=== PATIENT | female | born 1945 | race Caucasian/White ===

== ENCOUNTER 2020-01-29 20:01 | Inpatient (IN) | payer OTHER ==
[~2020-01-29] VITALS: Ht 152.4 cm; Wt 53.1 kg
[2020-01-29 20:03] VITALS: BP 127/62
[2020-01-29 20:26] LABS: ABSOLUTE NEUTROPHILS 5.8 thou/uL (1.4-8.2); BASOPHILS 0.9 % (0.0-2.0); EOSINOPHILS 0.9 % (0.0-3.0); HEMATOCRIT 28.3 % (37.0-47.0); HEMOGLOBIN 9.4 gm/dL (12.0-15.0); LYMPHOCYTES 27.7 % (24.0-44.0); MCHC 33.2 g/dL (28.0-37.0); MCV 87.5 fL (80.0-100.0); MONOCYTES 6.3 % (1.0-8.0); PLATELET COUNT 325 thou/uL (150-400); POLYS 64.2 % (36.0-66.0); RBC 3.24 mil/uL (4.20-5.00); RDW 17.4 % (10.5-14.5)
[2020-01-29 20:34] LABS: CALCIUM 8.5 mg/dL (8.5-10.1); CREATININE 1.9 mg/dL (0.6-1.0); POTASSIUM 3.6 mmol/L (3.5-5.1)
[2020-01-29 20:39] LABS: ALBUMIN 2.4 g/dL (3.4-5.0); TOTAL BILIRUBIN 0.3 mg/dL (<0.1-1.0); TOTAL PROTEIN 7.3 g/dL (6.4-8.2)
[2020-01-29 21:50] LABS: URINE BILIRUBIN NEGATIVE (Negative); URINE BLOOD NEGATIVE (Negative); URINE CLARITY CLEAR; URINE COLOR YELLOW; URINE GLUCOSE-RANDOM* NEGATIVE (Negative); URINE KETONES NEGATIVE (Negative); URINE NITRITE-REFLEX NEGATIVE (Negative); URINE PROTEIN (DIPSTICK) NEGATIVE (Negative); URINE SPECIFIC GRAVITY <= 1.005 (1.005-1.035); URINE UROBILINOGEN 0.2 E.U./dl (0.2-1.0)
[2020-01-29 21:52] LABS: URINE LEUKOCYTES-REFLEX 1+ (Negative)
[2020-01-29 21:57] LABS: AMP/METHAMP Negative (Negative); BARBITURATES Negative (Negative); BENZODIAZEPINES Negative (Negative); COCAINE Negative (Negative); METHADONE Negative (Negative); OPIATES Negative (Negative); PCP Negative (Negative)
[2020-01-29 22:01] LABS: BACTERIA-REFLEX 1-9 Few /HPF (None Seen); CASTS None Seen /LPF (None Seen); CRYSTALS None Seen /LPF (None Seen); SQUAMOUS 0-3 Few /LPF (0-3); URINE RBC None Seen /HPF (0-2); URINE WBC-REFLEX 6-15 Few /HPF (0-5)
[2020-01-29 22:17] VITALS: BP 144/43
--- NOTE | 2020-01-29 22:17 | NUR ---
UNABLE TO DO EKG,PT WILL NOT STOP MOVING. PHYSICIAN AWARE
[2020-01-29] MEDS ORDERED: ACETAMINOPHEN325 M1 PO (23:44)
[2020-01-29] MEDS ORDERED: AMIODARONE HCL400 MG PO (23:45)
[2020-01-29] MEDS ORDERED: ASA81BEC PO (23:46)
[2020-01-29] MEDS ORDERED: ATIVAN0.5 M1 PO (23:47)
[2020-01-29] MEDS ORDERED: SYMBICORT80 MCG/4.1 INH ×2 (23:49→23:50)
[2020-01-29] MEDS ORDERED: BUPROPION HCL150 M1 PO (23:52)
[2020-01-29] MEDS ORDERED: BUSPIRONE HCL10 MG PO (23:54)
[2020-01-29] MEDS ORDERED: CARVEDILOL25 MG PO ×2 (23:55→23:59)
[2020-01-29] MEDS ORDERED: KLONOPIN0.5 MG PO (23:59)
[2020-01-30] MEDS ORDERED: COLESTIPOL HCL1 G1 PO (00:01)
[2020-01-30] MEDS ORDERED: DEPAKOTE SPRIN125 MG PO (00:02)
[2020-01-30] MEDS ORDERED: VOLTAREN GEL 1100 G2 TOP (00:04)
[2020-01-30] MEDS ORDERED: COLACE100 MG PO ×2 (00:05)
[2020-01-30] MEDS ORDERED: IRON325 PO (00:06)
[2020-01-30] MEDS ORDERED: LEXAPRO20 MG PO (00:06)
[2020-01-30] MEDS ORDERED: FLUTICASONE-SA1 EAC3 INH (00:09)
[2020-01-30] MEDS ORDERED: LASIX 40 MG TAB40 MG PO (00:10)
[2020-01-30] MEDS ORDERED: HYDRALAZINE 5050 MG PO (00:11)
[2020-01-30] MEDS ORDERED: IPRAT-ALBUT 0.5-3 ML INH (00:14)
[2020-01-30] MEDS ORDERED: ISOSORBIDE MONO30 M1 PO (00:16)
[2020-01-30] MEDS ORDERED: LACTULOSE10 GM/152 PO (00:17)
[2020-01-30] MEDS ORDERED: MILK OF MA400 MG/5 M PO (00:19)
[2020-01-30] MEDS ORDERED: MIRALAX119 GM PO (00:29)
[2020-01-30] MEDS ORDERED: SUPER THERAVIT1 EACH PO (00:30)
[2020-01-30] MEDS ORDERED: NITROSTAT0.4 M1 SUBLING (00:46)
[2020-01-30] MEDS ORDERED: NYSTATIN1 EA10 TOP (00:48)
[2020-01-30] MEDS ORDERED: OMEPRAZOLE 20 M20 M1 PO (00:49)
[2020-01-30] MEDS ORDERED: ZOFRAN4 MG PO (00:50)
[2020-01-30] MEDS ORDERED: ROXICODONE5 MG PO (00:52)
[2020-01-30] MEDS ORDERED: ACETAMINOPHEN325 MG PO (00:55)
--- NOTE | 2020-01-30 03:17 | NUR ---
Pt. admitted through the ED from [facility]. Pt. was accepted by Anmol Andrade NP and admission orders were given. Pt. admitted with diagnosis of Dementia with Behavioral Disturbances. She arrived on the unit at 2225 on 01/29/20. Pt. was transferred from [facility] per W/C van. Per report pt. attempted to grab the steering wheel and open passenger door during transport. Report from [facility] states that she has had a 5 day period of increased aggression, agitation, and combativeness. Her baseline is reported to be Dementia but with no behaviors. She has a psych history of delusional disorder, unspecified psychosis, anxiety disorder, cognitive communication deficit, and major depression. She also has an extensive medical history including COPD, (oxygen sat on admission was 96%), chronic kidney failure, GERD, HTN, a-fib, CHF, and DM -2. She also has a history of dysphagia and it's reported that she is on a pureed diet with nektar thick liquids. She is w/c as a baseline and transferred from cart to bed with 1 person assist. She was also assisted from bed to bathroom with 1 person assist. Her gait is unsteady. Falls band on and Fall Risk care plan initiated. Bed alarm is also activated and name printed in yellow for bedroom signage. She is alert and oriented x 1 knowing her name and only. She can't state time, place, and has no sense of her current situation or future discharge plans. She can remember both her living childrens' names. Daughter Taylor Crouch is DPOA (phone number is [phone] for cell phone and [phone] for work number). She also has a son with name of Pierre and a daughter that she states has been "gone a long time". She further states that her daughter of a heart attack. She became tearful when talking about her daughter that was . Emotional support offered but rejected by patient. She was using profanity and sarcasm while attempting to complete her admission. She refused to answer some questions and would tell me to "get the fu__ out of here"! She repeatedly states that she is not staying here and that she will be leaving in the am.
[2020-01-30] MEDS ORDERED: TRAZODONE 150150 M1 PO (04:16)
[2020-01-30] MEDS ORDERED: SEROQUEL 50 MG50 M1 PO (04:16)
[2020-01-30 04:39] VITALS: BP 144/43
[2020-01-30] MEDS ORDERED: TRELEGY ELLIPT1 EACH INH (04:40)
--- NOTE | 2020-01-30 05:41 | NUR ---
After admission process patient was assited to the bathroom with standby assist x 1 and voided without incident. She laid down in bed at approximately 2330 and was able to fall asleep. She has been asleep with bed alarm on since that time without incident.
[2020-01-30 06:22] LABS: CALCIUM 8.5 mg/dL (8.5-10.1); CREATININE 1.7 mg/dL (0.6-1.0)
[2020-01-30 06:23] LABS: POTASSIUM 2.8 mmol/L (3.5-5.1)
--- NOTE | 2020-01-30 06:31 | NUR ---
Critical lab value of potassium 2.8 called to Anmol Andrade NP. Orders taken.
[2020-01-30 07:41] VITALS: BP 147/54
--- NOTE | 2020-01-30 10:30 | NUR ---
Assumed care 0700. Pt. had many complaints about the food and coffee. She declined to come out for breakfast. She was iformed meals would be hence forward sereved in the dining room. She was refusing to use walker or wheelchair per DIGITAL PRODUCER. Dr. Antonio here-also informed she was refusing to use w/c or walker. This AM was consumed with getting her blood sugar up to 90--Apple and orange juices 4 oz. each given, milk given. Seen by [employer] SALESPERSON-psych and Dr. Antonio. Note EKG dept. called to report they had d/c'd EKG as it did not get done in the ER and if Psych/Medical services wanted EKG-to orderit.
[2020-01-30 11:21] LABS: MAGNESIUM 2.2 mg/dL (1.8-2.4); PHOSPHORUS 4.9 mg/dL (2.5-4.9)
[2020-01-30 11:29] LABS: TSH 2.924 uIU/mL (0.358-3.740)
--- NOTE | 2020-01-30 11:37 | NUR ---
PT REFUSES TO USE WALKER OR RIDE IN WHEEL CHAIR. STATED THAT SHE DOSENT NEED TO USE IT BECAUSE SHE PAYS FOR THIS SHIT. PT IS VERY AGITATED WITH ANY REDIRECTION. YELLOW SOCKS AND SHIRT ARE ON ALONG WITH BED ALARM.
--- NOTE | 2020-01-30 15:33 | NUR ---
YULISA attempted to complete psychosociol with Pt. When entered Pt's room Pt appeared to be sleep. SW called Pt's name and Pt responded. Sw introduced self and asked Pt how she was doing. Pt's stated , " I don't want to walk I feel nauseated, every time I try to sleep somone comes to wake me up", " Now I am mad". SW allowed pt to go back to sleep. YULISA will follow up with Pt at a later time
--- NOTE | 2020-01-30 18:59 | NUR ---
Had shower afterBM.Many repeated questions/complaints--lack ofTV/coffee. Nurse spoke with daughter twice-who thought pt. wasto have Oxycodone scheduled instead of prn q 6 hours. Dtr. wants to know the treatment plan once completed.
[2020-01-30 19:36] VITALS: BP 129/71
--- NOTE | 2020-01-31 05:14 | NUR ---
Assumed care of pt @ 1900. Pt calm et cooperative with pleasant demeanor this shift. Took medications whole without difficulty. Pt was not assessed for ambulation as she was isolated in room in bed most of the shift. Socialized with her roommate. VSWNL. Blood sugar level WNL. Health assessment with no abnormalities noted at present time. Breathing treatment done by RT as scheduled. Denies SI/HI. Currently resting in bed with eyes closed. Will continue to monitor per protocol.
[2020-01-31 07:46] VITALS: BP 143/63
[2020-01-31 08:52] LABS: ABSOLUTE NEUTROPHILS 3.4 thou/uL (1.4-8.2); BASOPHILS 0.4 % (0.0-2.0); EOSINOPHILS 2.3 % (0.0-3.0); HEMOGLOBIN 8.2 gm/dL (12.0-15.0); MCH 28.8 pg (26.0-34.0); MCHC 32.7 g/dL (28.0-37.0); MCV 88.1 fL (80.0-100.0); MONOCYTES 8.8 % (1.0-8.0); POLYS 58.5 % (36.0-66.0); RBC 2.84 mil/uL (4.20-5.00); RDW 17.9 % (10.5-14.5); WBC 5.8 thou/uL (4.0-11.0)
[2020-01-31 08:56] LABS: PLATELET COUNT 232 thou/uL (150-400)
--- NOTE | 2020-01-31 09:00 | NUR ---
Assumed care 0700. Pt. refused to get out of bed for breakfast. Declined to eat breakfast. She had no complaints upon this nurse making initial rounds to see her.
[2020-01-31 09:05] LABS: CALCIUM 8.4 mg/dL (8.5-10.1); CREATININE 1.6 mg/dL (0.6-1.0); MAGNESIUM 2.1 mg/dL (1.8-2.4); PHOSPHORUS 2.5 mg/dL (2.5-4.9); POTASSIUM 3.9 mmol/L (3.5-5.1)
--- NOTE | 2020-01-31 14:11 | NUR ---
Patient was gotten out of her room about 1110. Initially she was very irritable about being pushed in the w/c out of her room after using the toilet and getting her bed remade. She was given coffee, sipped it, and started getting engaged in TV viewing, then settled down about being out of her room. She was asked if she would like to talk with her daughter on the phone and she adamantly declined, stating, no, I don't want to talk with her. She wishes to have a TV in her room and be served all of her meals there. Lab is here to draw blood. Dr. Antonio was consulted regarding recent orders, stating she would talk with Anmol Andrade NP re: orders she had written. Plan is to be on Flagyl, recheck blood work and use good handwashing, unless she needed blood transfusion, then transfer her off the unit.
[2020-01-31 14:40] LABS: HEMATOCRIT 25.4 % (37.0-47.0); HEMOGLOBIN 8.3 gm/dL (12.0-15.0)
[2020-01-31 19:39] VITALS: BP 140/60
[2020-02-01 02:07] LABS: GLYCOHEMOGLOBIN (HGB A1C) 5.6 % (4.8-5.6)
[2020-02-01 04:41] LABS: ABSOLUTE NEUTROPHILS 3.4 thou/uL (1.4-8.2); BASOPHILS 0.6 % (0.0-2.0); EOSINOPHILS 2.6 % (0.0-3.0); HEMATOCRIT 24.4 % (37.0-47.0); HEMOGLOBIN 7.9 gm/dL (12.0-15.0); MCH 28.7 pg (26.0-34.0); MCHC 32.3 g/dL (28.0-37.0); MONOCYTES 7.8 % (1.0-8.0); PLATELET COUNT 206 thou/uL (150-400); RBC 2.74 mil/uL (4.20-5.00); RDW 17.8 % (10.5-14.5); WBC 5.9 thou/uL (4.0-11.0)
[2020-02-01 05:00] LABS: ALBUMIN 1.9 g/dL (3.4-5.0); CALCIUM 8.2 mg/dL (8.5-10.1); CREATININE 1.5 mg/dL (0.6-1.0); MAGNESIUM 2.1 mg/dL (1.8-2.4); PHOSPHORUS 1.4 mg/dL (2.5-4.9); POTASSIUM 4.4 mmol/L (3.5-5.1); TOTAL BILIRUBIN 0.2 mg/dL (<0.1-1.0); TOTAL PROTEIN 6.2 g/dL (6.4-8.2)
--- NOTE | 2020-02-01 05:37 | NUR ---
01-31-20 CARE TRANSFERED 1914 OBSERVED PT IN DAY ROOM SITTING AT TABLE. 2004 PT AAOX1, PRESENTS AGITATED AND IRRITABLE BUT DID COOPERATIVE DURING NURSING ASSESSMENT. PT DENIES ANY PAIN OR SI/SH/HI AT THIS TIME. DURING MEDICATION ADMIN. PT HAD ZERO DIFFICUTIES WITH SWALLOWING MEDICATION WITH LIQUID THICKNER. PT DID HAVE CONCERN ABOUT THE MEN ROAMING HALLWAYS, RN REASSURED PT THAT HER BED ALARM AND MADE SURE ARAIZA WAS EASY ACCESSIBLE. PT DID TEST ARAIZA OUT AND AFTER PROMPTLY RESPONDING, PT REPORTED SHE FELT A LITTL BETTER. OF NOTE, PLEASE REFER TO NURSING INTERVENTIONS FOR MORE INFORMATION. ZERO ACUTE DISTRESS NOTED THROUGHOUT NURSING ROUNDS.
[2020-02-01 07:31] VITALS: BP 114/45
[2020-02-01 08:47] VITALS: BP 114/45
[2020-02-01] MEDS ORDERED: HYDRALAZINE 10M10 MG PO (10:50)
[2020-02-01] MEDS ORDERED: HOME MEDICATION INH (10:53)
--- NOTE | 2020-02-01 11:11 | NUR ---
DR. MEYERS HERE TO SEE THE PT. HER LABS HAVE BEEN DROPPING. DR. CHRISTOPHERS PT. ON MEDICAL. DR. CHRISTENSEN ALSO CONSULTED WITH DR. MEYERS. REPORT GIVEN TO OLIVER MOSER. SHE IS BEING TRANSFERED TO ROOM 436.
--- NOTE | 2020-02-02 21:22 | D ---
[facility] [place] [address] DISCHARGE SUMMARY Name: HAYLEY SANCHEZ Room #: 523B-B DIS IN M.R.#: [id number] Admission: 01/29/20 Attend Phys: Fantasma Moss DO Discharge: 02/01/20 Date of : 47 Report #: [id number] THIS REPORT FOR: cc: Denny Moreira MD, Dennis R MD Kerstein, Andrew H. DO ~ THIS REPORT FOR: //name// CC: Fantasma Moreira DATE OF SERVICE: 02/01/2020 INPATIENT PSYCHIATRIC DISCHARGE SUMMARY ATTENDING PHYSICIAN: Fantasma Moss DO. WEB DESIGN SPECIALIST: Vanesa Antonio M.D. DISCHARGE DIAGNOSES: Major neurocognitive disorder likely due to Alzheimer's disease with behavioral disturbance. She also is being discharged acutely to the medical floor at [facility] for a concern of lower GI bleed with positive fecal hemoccult as well as declining hemoglobin count on the serial hemograms. The patient's co-occurring medical diagnoses are diarrhea, laxative held, decreased p.o. intake, severe malnutrition with albumin 1.9. Possible urinary tract infection, acute kidney injury with CKD stage 3, hypokalemia, insomnia, hypertension, history of coronary artery disease, tobacco use disorder. The patient is discharged to room 436, which is on the medical floor at [facility]. The patient will be n.p.o. for endoscopy tomorrow. Further activity and medication orders per Dr. Antonio. I did put on a discharge med rec to continue. Again, per the hospitalist review, amiodarone 200 mg p.o. daily. Aspirin should be held because of GI bleed. She is on Symbicort 80/4.5 two puffs inhaled daily, bupropion 150 mg p.o. daily, Coreg 25 mg p.o. b.i.d., Klonopin 0.5 mg p.o. b.i.d., colestipol 1 gram p.o. 4 times a day, ferrous sulfate 325 mg p.o. daily, albuterol with Atrovent 3 mL inhaled q. 4 hours p.r.n. shortness of breath. Isosorbide mononitrate 30 mg p.o. daily, oxycodone 5 mg p.o. q. 6 p.r.n. and Seroquel 50 mg p.o. at bedtime. Again, this is probably not optimized as she was admitted this weekend and because she is n.p.o. and most of those medications probably are not going to be [address] [address] DISCHARGE SUMMARY Name: HAYLEY SANCHEZ Room #: 523B-B DIS IN M.R.#: [id number] Admission: 01/29/20 Attend Phys: Fantasma Moss DO Discharge: 02/01/20 Date of : 47 Report #: [id number] appropriate for the medical floor. REASON FOR PSYCHIATRIC ADMISSION: A 74-year-old female brought to the hospital from [facility]. History of dementia, strokes. She has reported becoming aggressive towards them and wanted to be evaluated. HOSPITAL COURSE: The patient was admitted to the Geriatric Psychiatry Unit. The patient was started on Depakote 250 mg twice per day. Seroquel was continued. Unfortunately, she developed weakness, became pale, diarrhea for last 1-2 days. My edger operator Mr. Andrade did her initial psychiatric evaluation Saturday. Dr. Antonio made a decision to move her today to the medical floor. We did have a conference with her daughter, Taylor, over the phone, explaining the poor prognosis given her guarded prognosis. The daughter wanted full measures taken. VITAL SIGNS: On the day of discharge, temperature 36.4, pulse 57, respirations 14, BP 114/45, O2 sat 95%. LABORATORY DATA: On the day of discharge, H and H 8.2 and 25.2, white count 5.7, platelet count 218. Chemistries: Sodium 137, potassium 4.1, chloride 102, bicarbonate 33, anion gap 2, BUN 14, creatinine 1.5, estimated GFR 34, glucose 103. Estimated average glucose 114, calcium 8.1, phosphorus 1.4, magnesium 2.1, total bilirubin 0.2, AST 14, ALT 13, total protein 6.2, albumin 1.9. Vitamin B12, 2261. TSH 2.924. Toxicology showed a Depakote level on 01/31/2020 of 25. Urinalysis showed 3+ leukocyte esterase, 25 leukocytes, 10-30 bacteria, 0-3 light mucus. Her urine culture came back 3 or more organisms, so I think that would be a sign of lack of infectious focus. Occult blood was positive. PHYSICAL EXAMINATION: Nonambulatory. MENTAL STATUS EXAMINATION: This is a well-developed, pale, ill-appearing female appearing stated age. Attention fair. Concentration impaired. She was oriented to day but not to month. Denied SI or HI. Some helplessness, some hopelessness. Denied homicidal intent or plan. Denied suicidal intent or plan. Memory not formally tested. Insight limited. Judgment limited. PROGNOSIS: Guarded. I will be happy to consult on her on the medical floor. Dr. Antonio was informed of this. <ELECTRONICALLY SIGNED> By: Fantasma Moss, 02/02/20 2122 [id number] Fantasma Moss, /nt
== END 2020-02-01 11:16 | disposition home or self-care (01) | DRG 57 ==
LOC: ER 20:01 → EROBS 22:10 → SBH 22:10
PROVIDERS: Emergency Medicine; Internal Medicine; Nurse Practitioner Family; ADMIT Psychiatry & Neurology Psychiatry
DX: G30.9 Alzheimer's disease, unspecified (principal); N39.0 Urinary tract infection, site not specified; N17.9 Acute kidney failure, unspecified; K92.2 Gastrointestinal hemorrhage, unspecified; F01.51 Vascular dementia, unspecified severity, with behavioral disturbance; N18.3 Chronic kidney disease, stage 3 (moderate); E87.6 Hypokalemia; E86.0 Dehydration; D64.9 Anemia, unspecified; G47.00 Insomnia, unspecified; I25.10 Atherosclerotic heart disease of native coronary artery without angina pectoris; F17.200 Nicotine dependence, unspecified, uncomplicated; I12.9 Hypertensive chronic kidney disease with stage 1 through stage 4 chronic kidney disease, or unspecified chronic kidney disease; E11.649 Type 2 diabetes mellitus with hypoglycemia without coma; Z86.73 Personal history of transient ischemic attack (TIA), and cerebral infarction without residual deficits; I25.2 Old myocardial infarction; Z79.82 Long term (current) use of aspirin; Z79.891 Long term (current) use of opiate analgesic; Z91.048 Other nonmedicinal substance allergy status; Z79.899 Other long term (current) drug therapy
CPT/HCPCS: 10880

== ENCOUNTER 2020-02-01 11:30 | Inpatient (IN) | payer OTHER ==
[~2020-02-01] VITALS: Ht 152.4 cm; Wt 53.0 kg
[~2020-02-01 11:30] MED LIST: ACETAMINOPHEN325 M1 PO; ACETAMINOPHEN325 MG PO; AMIODARONE HCL400 MG PO; ASA81BEC PO; ATIVAN0.5 M1 PO; BUPROPION HCL150 M1 PO; BUSPIRONE HCL10 MG PO; CARVEDILOL25 MG PO; COLACE100 MG PO; COLESTIPOL HCL1 G1 PO; DEPAKOTE SPRIN125 MG PO; FLUTICASONE-SA1 EAC3 INH; HOME MEDICATION INH; HYDRALAZINE 10M10 MG PO; HYDRALAZINE 5050 MG PO; IPRAT-ALBUT 0.5-3 ML INH; IRON325 PO; ISOSORBIDE MONO30 M1 PO; KLONOPIN0.5 MG PO; LACTULOSE10 GM/152 PO; LASIX 40 MG TAB40 MG PO; LEXAPRO20 MG PO; MILK OF MA400 MG/5 M PO; MIRALAX119 GM PO; NITROSTAT0.4 M1 SUBLING; NYSTATIN1 EA10 TOP; OMEPRAZOLE 20 M20 M1 PO; ROXICODONE5 MG PO; SEROQUEL 50 MG50 M1 PO; SUPER THERAVIT1 EACH PO; SYMBICORT80 MCG/4.1 INH; TRAZODONE 150150 M1 PO; TRELEGY ELLIPT1 EACH INH; VOLTAREN GEL 1100 G2 TOP; ZOFRAN4 MG PO
[2020-02-01 12:51] VITALS: BP 134/45
[2020-02-01 13:01] LABS: URINE BILIRUBIN NEGATIVE (Negative); URINE BLOOD NEGATIVE (Negative); URINE COLOR YELLOW; URINE GLUCOSE-RANDOM* NEGATIVE (Negative); URINE KETONES TRACE (Negative); URINE LEUKOCYTES 3+ (Negative); URINE NITRITE NEGATIVE (Negative); URINE PROTEIN (DIPSTICK) NEGATIVE (Negative); URINE UROBILINOGEN 0.2 E.U./dl (0.2-1.0)
[2020-02-01 13:04] LABS: URINE CLARITY SL HAZY
[2020-02-01 13:21] LABS: CASTS None Seen /LPF (None Seen); MUCUS 0-3 Light strn/LPF (None Seen); SQUAMOUS 0-3 Few /LPF (0-3)
[2020-02-01 13:22] LABS: CRYSTALS None Seen /LPF (None Seen); URINE RBC None Seen /HPF (0-2); URINE WBC >25 Many /HPF (0-5)
[2020-02-01 13:26] LABS: HEMATOCRIT 25.2 % (37.0-47.0); HEMOGLOBIN 8.2 gm/dL (12.0-15.0); MCH 29.1 pg (26.0-34.0); MCHC 32.5 g/dL (28.0-37.0); MCV 89.5 fL (80.0-100.0); RBC 2.81 mil/uL (4.20-5.00); RDW 17.7 % (10.5-14.5); WBC 5.7 thou/uL (4.0-11.0)
[2020-02-01 13:40] LABS: CALCIUM 8.1 mg/dL (8.5-10.1); CREATININE 1.5 mg/dL (0.6-1.0); POTASSIUM 4.1 mmol/L (3.5-5.1)
[2020-02-01 13:49] LABS: ALBUMIN 1.9 g/dL (3.4-5.0); TOTAL BILIRUBIN 0.2 mg/dL (<0.1-1.0); TOTAL PROTEIN 6.2 g/dL (6.4-8.2)
--- NOTE | 2020-02-01 17:57 | NUR ---
TRANSFERED FROM [facility]. PATIENT IS UNHAPPY ABOUT TRANSFER. EMOTIONAL SUPPORT PROVIDED BUT CONFUSED AND FORGETFUL. AMBULATES WITH SLOW STEADY GAIT. INCONTINT OF DARK LIQUID STOOL. REMAINS NPO. DENIES PAIN. NEEDS REASSURACE, CALLS OUT FREQUENTLY.
[2020-02-01 19:20] VITALS: BP 123/59
[2020-02-02 03:35] VITALS: BP 134/66
[2020-02-02 05:04] LABS: PROTIME 9.8 Seconds (9.3-11.4)
--- NOTE | 2020-02-02 05:51 | NUR ---
RECIEVED CARE OF THIS PATIENT AT 1900. PATIENT ALERT AND ORIENTED TO SELF ONLY. PATIENT VERY BELLIGERENT, CALLING EVERYONE A LIAR, AND OTHER NAMES. VERY INPULSIVE. STATES SHE WILL NOT HAVE TEST THIS MORNING. HAS BEEN NPO FOR TEST [place]CE [place]. PUTS ON LIGHT EVERY FEW MINUTES. WANTS OPPISITE OF WHAT IS DONE, ie: IF LIGHT IS LEFT ON SHE WANTS IT OFF, IF LIGHT TURNED OFF SHE WANTS IT ON. WILL GET INTO BED WHEN ASKED. SLEPT VERY LITTLE THIS AM.
[2020-02-02 06:05] LABS: HEMATOCRIT 25.3 % (37.0-47.0); HEMOGLOBIN 8.5 gm/dL (12.0-15.0); MCH 29.9 pg (26.0-34.0); MCHC 33.8 g/dL (28.0-37.0); MCV 88.4 fL (80.0-100.0); RBC 2.85 mil/uL (4.20-5.00); RDW 17.7 % (10.5-14.5); WBC 7.5 thou/uL (4.0-11.0)
[2020-02-02 07:33] LABS: CALCIUM 8.3 mg/dL (8.5-10.1); CREATININE 1.3 mg/dL (0.6-1.0); MAGNESIUM 1.9 mg/dL (1.8-2.4); PHOSPHORUS 1.3 mg/dL (2.5-4.9)
[2020-02-02 08:22] VITALS: BP 150/68
--- NOTE | 2020-02-02 09:51 | NUR ---
chart review, intro to cm, dcp, and transition of care with daughter arun via phone call. she reported " lives at [facility], started on [facility] but now she need more supervision and assist so since had falls, she went to [facility]. walker, recliner chair, wheel chair. she changes after her last hospital stay. she went to rehab there then back to [facility]. wants to smoke agin and has not smoked in years. she started becoming combative, uses course words at other residents so she went for a [facility] eval for medication re-eval. she increased hard time since cant visit since covid started. she cant not work her recliner chair and cant work her cell phone. she asking for family who have passed always years and years ago. last few months she has been declining mentally and now with some bleed what are they going to do"/daughter arun. passed on information to bedside nurse.
[2020-02-02 15:56] VITALS: BP 138/57
--- NOTE | 2020-02-02 18:28 | NUR ---
PT ASSESSED AT START OF SHIFT. SLEEPING FROM OVERNOC SEROQUEL. PT NPO FOR EGD WHITCH SHE REFUSED TO GO FOR WHEN TRANSPORTER HERE TO TAKE HER. NOTIFIED. DR. CHRISTENSEN HERE TO SEE PT AND TALKED W/ DR. MUJICA RE PLAN OF CARE. PT FAIRLY CALM AND COOPERATIVE UNTIL MID AFTERNOON IN WHICH SHE STARTED YELLING OUT AND TRYING TO GET OUT OF BED W/O CALLING FOR MURSE. DR. CHRISTENSEN NOTIFIED AND SEROQUEL ORDERS CHANGED. PRN DOSE GIVEN AND PT NOW VERY COOPERATIVE AND CALM. SITTING UP IN THE CHAIR AND EATING HER DINNER AND NOT TRYING TO GET DRESSED AND LEAVE. PT DID HAVE 2 MEDIUM BROWN STOOLS W/O ANY SIGNS OF BLEEDING.
[2020-02-02 19:15] VITALS: BP 105/50
--- NOTE | 2020-02-03 03:32 | NUR ---
ASSESSED AT START OF SHIFT PT IN CHAIR GETS UP FREQUENTLY W/O CALLING FALL PREC IN PLACE. A&O2 PT STATED SHE'S GOING HOME TOMORROW. PT TRANSFRED TO BED UP WITH SBA TO THE BATHROOM NO BM THIS SHIFT. NIGHT TIME MEDS GIVEN AND PT FRANK IT WELL. SLEPT THROUGH THE NIGHT. CALL LIGHT IN PLACE AND FREQ ROUNDING DONE WILL CONT WITH POC TILL EOS.
[2020-02-03 04:29] VITALS: BP 147/52
[2020-02-03 05:54] LABS: HEMATOCRIT 22.3 % (37.0-47.0); HEMOGLOBIN 7.3 gm/dL (12.0-15.0); MCH 28.8 pg (26.0-34.0); MCHC 32.5 g/dL (28.0-37.0); MCV 88.5 fL (80.0-100.0); RBC 2.52 mil/uL (4.20-5.00); RDW 17.9 % (10.5-14.5); WBC 5.6 thou/uL (4.0-11.0)
[2020-02-03 11:26] VITALS: BP 134/46
[2020-02-03] MEDS ORDERED: CARVEDILOL12.5 MG PO (11:44)
--- NOTE | 2020-02-03 14:37 | NUR ---
ASSUMED CARE OF THE PT AT 0700. PT IS STANDBY ASSIST WITH WALKER AND GAIT BELT. PT IS ALERT TO SELF AND PLACE, VERY CONFUSED AND FORGETFUL. SPOKE WITH PTS DAUGHTER TODAY ON PTS STATUS, PTS DAUGHTER SPOKE WITH PT AND PT NOW AGREES TO DO EGD, PT WILL BE NPO AFTER MIDNIGHT. NO ACTIVE GI BLEEDS TODAY.R FOREARM DRY AND INTACT. BM TODAY. PTS HGB IS 7.3. PSYCH VISITIED PT TODAY. FALL PRECAUTIONS IN PLACE, BED IN THE LOWEST POSITION AND CALL LIGHT IS WITHIN REACH. WILL CONTINUE TO MONITOR THE PT.
--- NOTE | 2020-02-03 15:02 | NUR ---
CARE TEAM HAD ORIGINALLY INDICATED THAT PT WAS MEDICALLY STABLE TO DC BACK TO [facility] THIS DAY BUT GI ARE WANTING TO DO AN EGD SO DC IS CANCELED. PT'S DTR AND [facility] ARE AWARE. CM TO FOLLOW INDICTED WITH DC PLANNING.
[2020-02-03 15:24] VITALS: BP 133/63
[2020-02-03 20:25] VITALS: BP 135/60
--- NOTE | 2020-02-03 22:11 | HC ---
[facility] [place] [address] CONSULTATION Name: HAYLEY SANCHEZ Room #: 436-P ADM IN M.R.#: [id number] Admission: 02/01/20 Attend Phys: Vanesa Antonio MD Discharge: Date of : 47 Report #: [id number] THIS REPORT FOR: cc: Denny Moreira MD, Dennis R MD Kerstein, Andrew H. DO ~ CC: Denny Antonio DATE OF SERVICE: 02/02/2020 PRIMARY TEAM ATTENDING TODAY: Dr. Fantasma Celestin. CONSULTING PSYCHIATRIST: Fantasma Moss DO REASON FOR CONSULTATION: The patient was in a [facility] until Saturday02/01/2020 and she was transferred to the medical bed for concern of declining in hemoglobin and lower GI bleed. SOURCES OF INFORMATION: Interview with the patient, chart review, discussion with Dr. Celestin. HISTORY OF PRESENT ILLNESS: This is a 74-year-old female with a history of dementia. She was initially admitted on Saturday evening, 01/29/2020 at the [facility] for behavioral disturbance from a nursing facility. The patient was briefly treated on the [facility] when she developed a positive fecal Hemoccult blood as well as declining hemoglobin. Interestingly, today there was supposed to be an upper GI and lower GI study done on EGD and the patient declined to have this done. Her daughter is her DPOA. She is aware of the circumstances. On bedside interview, the patient is not oriented to the day of the week, but she is in fair mood. She reports she wants to endoscopy study done by her own doctor. I explained that the bleeding she encountered could very well be of episodic nature, though may not immediately return. The downside of not being scoped as the cause would not be unearthed and it could become problematic again. I think under the present situation, I agree with the medical team that her hemoglobin has improved on its own at the level of 8.5 and it is not a life threatening emergency. Dr. Celestin would like to keep the patient on the Medical Unit another day to make sure her hemoglobin remained stable. This is also fine with me and reasonable. Additional information from her past history is as follows. PAST PSYCHIATRIC HISTORY: None known other than the dementia. PAST MEDICAL HISTORY: Includes living at [facility]. She has COPD, acute on chronic respiratory failure, systolic congestive heart failure, chronic anemia, CKD stage III, GERD with esophagitis, paroxysmal atrial fibrillation, [facility] [address] [place] [address] CONSULTATION Name: HAYLEY SANCHEZ Room #: 436-P [facility]#: [id number] Admission: 02/01/20 Attend Phys: Vanesa Antonio MD Discharge: Date of : 47 Report #: [id number] several strokes in the past, oropharyngeal dysphagia, chronic pain syndrome, spinal stenosis, diabetes mellitus type 2. ALLERGIES: TAPE. FAMILY HISTORY: One daughter with cancer (1 daughter and 1 son alive). Daughter is only one involved in the care of the patient. Her daughter is her DPOA. REVIEW OF SYSTEMS: Limited because of dementia. MEDICATIONS: Her current medications on the medical unit were as follows: Phos-Nak pack, 1 packet t.i.d., I believe, that is for phosphorus replacement; isosorbide mononitrate 30 mg p.o. daily; hydralazine 10 mg p.o. b.i.d.; lorazepam 0.5 mg p.o. b.i.d.; bupropion 150 mg p.o. daily; amiodarone 200 mg p.o. daily; Coreg 12.5 mg dose p.o. b.i.d.; oxycodone 5 mg q. 6 hours p.r.n. p.o., she has not gotten any down there; pantoprazole 40 mg p.o. b.i.d. IV push. LABORATORY DATA: From today 02/02/2020, H and H 8.5 and 25.3, white count 7.5, platelet count 260.on 02/02/2020, PT 9.8, INR 1.0. Chemistries from the 02/02/2020, sodium 135, potassium 4.0, chloride 102, bicarbonate 31, anion gap 2, BUN 14, creatinine 1.3, which is improved from 1.5 yesterday, estimated GFR 40, glucose 81, calcium 8.3, phosphorus 1.3, magnesium 1.9. AST on 02/01/2020 of 14, ALT 13, total protein 6.2 and albumin 1.9. COVID-19 PCR is negative. No imaging had been done in terms of x-rays. PHYSICAL EXAMINATION: VITAL SIGNS: Today, temperature 36.4, pulse 62, respirations 18, BP 138/57, O2 sat 98%. GENERAL: Sitting upright in bed, ate about 45% of her lunch. Wearing glasses. MENTAL STATUS EXAMINATION: This is a well-developed, unkempt female, appearing slightly older than stated age. Attention fair. Concentration limited. Speech is normal, rate, rhythm, tone. Thought process linear and goal oriented. Thought content focused on improving of situation on one hand, she did have relative poverty of thought though. Denied suicidal or homicidal ideations. Denied auditory, visual, or tactile hallucinations. Memory known to be impaired. Insight limited. Judgment limited. Fund of knowledge below baseline. Mood/Affect- constricted congruent FORMULATION: A 74-year-old female admitted to medical floor due to declining hemoglobin, positive fecal occult blood test, now has refused esophagogastroduodenoscopy or colonoscopy. DIAGNOSES: At this time, major neurocognitive disorder at least cerebrovascular [facility] [address] [place] [address] CONSULTATION Name: HAYLEY SANCHEZ Room #: 436-P [facility] IN M.R.#: [id number] Admission: 02/01/20 Attend Phys: Vanesa Antonio MD Discharge: Date of : 47 Report #: [id number] origin, possibly some Alzheimer's contribution with behavioral disturbance, numerous comorbidities including heart failure, lower GI bleed, COPD, chronic kidney disease. RECOMMENDATIONS: At this time, we will start her on Seroquel 25 mg q. 4 hours p.r.n. for anxiety. We will increase her bedtime Seroquel to 50 mg at bedtime. Some of the other patient's psych meds do not make tremendous sense, for example Klonopin 0.5 mg twice a day. I am inclined to move to 0.25 twice a day and then discontinue it after that, as if she is getting Seroquel for anxiety that is essentially therapeutic duplication. We will leave the bupropion in place at this point. I thought it was twice a day, but looks like it is ordered once a day and that is of some concern as the SR is normally dosed twice a day, but I will leave that be for today as we do want to change too many things at once. Time spent on interview, review of records, coordination of care for this patient is approximately 60 minutes, greater than 50% was spent in coordination of care and counseling with the patient's nurse and the primary team attending, Dr. Fantasma Celestin. <ELECTRONICALLY SIGNED> By: Fantasma Moss DO 02/03/20 [id number] Fantasma Moss DO /nt
--- NOTE | 2020-02-04 02:12 | NUR ---
ASSESSED AT START OF SHIFT PT A&OX2 TO PERSON AND SITUATION. AWARE OF EGD PROCEDURE TOMORROW. PT NPO AT MIDNIGHT. UP WITH SBA TO THE BATHROOM NO ACTIVE GI BLEED THIS SHIFT BUT PT PASSING FLATUS. MUCH CALMER THIS SHIFT ONLY GETS UP TO USE THE BATHROOM. FALL PREC IN PLACE AND CALL LIGHT IN REACH WILL CONT WITH POC TILL EOS.
[2020-02-04 04:30] VITALS: BP 143/41
[2020-02-04 05:51] LABS: HEMATOCRIT 22.5 % (37.0-47.0); HEMOGLOBIN 7.3 gm/dL (12.0-15.0); MCH 29.1 pg (26.0-34.0); MCHC 32.7 g/dL (28.0-37.0); MCV 89.2 fL (80.0-100.0); RBC 2.52 mil/uL (4.20-5.00); RDW 18.3 % (10.5-14.5); WBC 6.1 thou/uL (4.0-11.0)
[2020-02-04 07:45] VITALS: BP 143/73
--- NOTE | 2020-02-04 11:05 | NUR ---
discussed during los per md after egd, discharge [place] b[place] [phone] [place] [facility].
[2020-02-04 16:45] VITALS: BP 135/69
[2020-02-04 19:15] VITALS: BP 107/57
--- NOTE | 2020-02-04 19:37 | NUR ---
EGD COMPLETED. RETURNED TO ROOM AND ATE DINNER. TOLERATED WELL.
--- NOTE | 2020-02-05 02:55 | NUR ---
ASSESSED AT START OF SHIFT PT RESTING IN BED. UP WITH SBA TO THE BSC NO ACTIVE GI BLEED THIS SHIFT. DR CHRISTENSEN CALLED STATED HE WILL SEE PT IN THE AM AND POSSIBLE D/C TO [facility]. EVENING MEDS GIVEN AND PT FRANK IT WELL. GETS UP TO USE THE BATHROOM WITHOUT CALLING. FALL PREC IN PLACE AND CALL LIGHT IN REACH WILL CONT TO MONITOR TILL EOS.
[2020-02-05 03:20] VITALS: BP 137/66
[2020-02-05 04:08] LABS: HEMATOCRIT 21.4 % (37.0-47.0); HEMOGLOBIN 7.1 gm/dL (12.0-15.0); MCH 29.4 pg (26.0-34.0); MCV 89.1 fL (80.0-100.0); RBC 2.4 mil/uL (4.20-5.00); RDW 18.2 % (10.5-14.5); WBC 5.8 thou/uL (4.0-11.0)
[2020-02-05 04:23] LABS: ALBUMIN 1.9 g/dL (3.4-5.0); CALCIUM 7.8 mg/dL (8.5-10.1); CREATININE 1.4 mg/dL (0.6-1.0); MAGNESIUM 1.8 mg/dL (1.8-2.4); PHOSPHORUS 2.7 mg/dL (2.5-4.9); POTASSIUM 3.8 mmol/L (3.5-5.1); TOTAL BILIRUBIN 0.2 mg/dL (0.2-1.0)
[2020-02-05 08:00] VITALS: BP 146/65
[2020-02-05 09:27] LABS: % SATURATION 13 % (20-39); IRON 25 ug/dL (50-170); TIBC 187 ug/dL (250-450)
[2020-02-05 09:43] LABS: FOLIC ACID 9.9 ng/mL (8.6-58.9)
[2020-02-05 15:00] VITALS: BP 146/69
--- NOTE | 2020-02-05 15:39 | NUR ---
ASSUMED CARE OF THE PT AT 0700. PT CONTINUES TO GET OUT OF THE BED AND TRIES TO WALK OUT THE ROOM. PT IS VERY CONFUSED, DOES NOT KNOW WHERE SHE IS OR WHAT DAY IT IS. SPOKE WITH DAUGHTER AND SHE WANTS MOTHER TO GO TO GO UPSTAIRS SO SHE CAN BE MONITORED BY PSYCH, CONTACTED HOSPITALIST. SAT PT AT NURSES STATION UNTIL MEDS BEGAN TO WORK, SEE EMAR. FALL PRECAUTIONS IN PLACE. PT REFUSED TO EAT LUNCH AND REFUSED LUNCH ACCUCHEK. BED IN THE LOWEST POSITION AND BED ALARM ON, CALL LIGHT WITHIN REACH. WILL CONTINUE TO MONITOR THE PT.
--- NOTE | 2020-02-05 15:42 | NUR ---
ON-GOING ASSESSMENT: CM REVIEWED CHART AND SPOKE WITH ATTENDING. PTS HEMOGLOBIN IS LOW AND WILL CONTINUE TO MONITOR IT. PLANS ARE FOR PATIENT TO LIKELY GO BACK TO HER FACILITY [facility] SATURDAY IF HER HEMOGLOBIN REMAINS STABLE. ATTENDING SPOKE WITH PSYCHIATRY AND THEY FEEL PATIENT IS AT BASELINE AND DOES NOT NEED TO RETURN TO [facility]. CM SPOKE WITH LIASON AND PSYCHIATRIST DR. CHRISTENSEN SPOKE WITH THEIR [employer] ATTORNEY [facility] AND THEY CAN ACCEPT HER BACK. CM ASKED IF A LEVEL II needed TO BE COMPLETED DUE TO RECENT PSYCH STAY AND THEY STATED NO JUST TO FAX OVER A [id number] FORM. CM COMPLETED [id number] AND FAXED TO FACILITY. CM CONTACTED ADMISSION LIAFIONA ORTIZ AT [facility] WHO REPORTS THEY CAN ACCEPT PATIENT ONCE MEDICALLY STABLE. IF PATIENT IS STABLE TO DISCHARGE OVER THE WEEKEND CONTACT ANGEL IN ADMISSION ON HER CELL [phone] TO ARRANGE TRANSPORTATION. FOR REPORT CONTACT THE NURSES STATION [phone] AND ASK FOR [facility] [facility]OC[employer]ATE. A CHART COPY WILL NEED TO BE SENT WITH PATIENT. FAX D/C ORDERS AND SUMMARY TO FAX:[phone]. CONTACT PATIENTS DAUGHTER CALEB TO NOTIFY HER AT [phone].
[2020-02-05 19:20] VITALS: BP 110/60
--- NOTE | 2020-02-05 19:40 | NUR ---
1930 assumed care of pt aftyer bedside report, pt refusing to get into bed, pt was found walking in room. Charge nurse yousif notified of fall risk will call house sitter and dispatcher chief [employer] to notify them of pt safety issue
[2020-02-05 22:35] VITALS: BP 139/58
[2020-02-06 06:56] VITALS: BP 126/61
[2020-02-06 08:53] VITALS: BP 146/64
--- NOTE | 2020-02-06 15:48 | NUR ---
ASSUMED CARE OF THE PT AT 0700. PT IS STANDBY ASSIST AND CAN BE IMPULSIVE AND GETS OUT THE BED WITHOUT ASKING. NO INSULIN NEEDED FOR ACCUCHEK. IV DRY AND INTACT. LUNGS ARE CLEAR. PTS HGB IS 7.0, BLOOD TRANSFUSION. SPOKE WITH PTS DAUGHTER ABOUT PTS STATUS. PT REFUSED SCD'S. CALL LIGHT IS WITHIN REACH, BED IN THE LOWEST POSITION/ALARM ON, FALL PRECAUTIONS IN PLACE. PT CAN TURN SELF, HOURLY ROUNDING. WILL CONTINUE TO MONITOR THE PT.
[2020-02-06 16:20] VITALS: BP 110/53; BP 130/52
[2020-02-06 19:20] VITALS: BP 129/48
--- NOTE | 2020-02-06 19:46 | NUR ---
1900 assumed care of pt after bedside report. 1914 BASELINE ASSESSMENT COMPLETED, PT UP TO RESTROOM WITH ASSIST, NO COMPLAINTS OF PAIN AT THIS TIME, COOPERATIVE AND PLEASANT, ORIENTED TO PERSON AND PLACE ONLY, DISORIENTED TO PLACE ALSO QUICKLY. LAST PM SHIFT PT SLEPT 4 HOURS, ALSO MENTIONED THAT AT HOME SHE HAS TAKEN TRAZODONE IN THE PAST FOR SLEEP WHICH WAS HELPFUL FOR HER. PT IS ON SWALLOW PRECAUTIONS, AND FALL PRCAUTIONS IN PLACE, BLOOD TRANSFUSION X 1 UNIT WAS COMPLETED ON PREVIOUS SHIFT, PT TOLERATED WELL, BUT C/O PAIN TO IV SIT WHEN PALPATED, WILL ROTATE IV SITE THIS SHIFT. PT WITH SMALL BM NO ANGELICA BLOOD NOTED, WILL CONTINUE TO MONITOR WITH HOURLY ROUNDING, ARAIZA GIVEN SECONDARY TO CALL LIGHT SYSTEM FAILURE.
[2020-02-06 21:51] LABS: HEMATOCRIT 25.1 % (37.0-47.0); HEMOGLOBIN 8.4 gm/dL (12.0-15.0)
[2020-02-07 06:18] LABS: HEMATOCRIT 28.5 % (37.0-47.0); HEMOGLOBIN 9.3 gm/dL (12.0-15.0); MCH 29.2 pg (26.0-34.0); MCHC 32.7 g/dL (28.0-37.0); MCV 89.3 fL (80.0-100.0); RBC 3.19 mil/uL (4.20-5.00); RDW 18.1 % (10.5-14.5); WBC 6.9 thou/uL (4.0-11.0)
[2020-02-07 06:24] VITALS: BP 157/77
[2020-02-07 15:00] VITALS: BP 162/71
--- NOTE | 2020-02-07 16:56 | NUR ---
PT A&O TO SELF SOMETIMES PLACE. IV INTACT IN L FA. AMBULATES WITH STAND BY ASSIST THOUGH DOES NOT USE CALL LIGHT AND IS IMPULSIVE. BED/ CHAIR ALARM AT ALL TIMES. CALL LIGHT IS W/I REACH.
[2020-02-07 21:24] VITALS: BP 122/57
--- NOTE | 2020-02-08 01:02 | NUR ---
ASSESSMENT COMPLETED. PT IS ALERT TO SELF. DOES NOT KNOW WHERE SHE IS, BUT WOULD AGREE THAT SHE WAS HERE TO R/O A GI BLEED. PT IS LOOKING FOR MOM AND OTHER RELATIVES.PT IS VERY RESTLESS, REFUSES TO SIT DOWN AND WANTS THE FREEEDOM TO WALK INDEPENDENTLY IN ROOM.CHAIR ALARM IN PLACE AND WOULD GO OFF SEVERAL TIMES.PT IS DRINKING OKAY AND TAKES MEDS WITH NO DIFFICULTY. SHIFT PROGRESED, PT OBSERVED TO BE GETTING WORKED UP AND AGITATED. PRN SEROQUEL GIVEN EARLY BUT IS NOT EFFECTIVE. HALDOL IVP GIVEN X1. PT SEEMS TIRED. ASSISTED TO BED.AT THIS TIME, SHE IS STILL AWAKE, SITTING UP IN BED WATCHING TV.REPORT GIVEN TO UNIQUE BOYD, TAKING OVER PATIENT'S CARE.
--- NOTE | 2020-02-08 03:07 | NUR ---
ASSUMED CARE OF PT AT 0100. AMBULATING TO BATHROOM WITH STANDBY ASSIST. DENIES PAIN. RESTING COMFORTABLY. NO NEEDS VOICED. CALL LIGHT WITHIN REACH. FREQUENT OBSERVATION.
[2020-02-08 06:05] LABS: HEMATOCRIT 25.1 % (37.0-47.0); HEMOGLOBIN 8.3 gm/dL (12.0-15.0); MCH 29.6 pg (26.0-34.0); MCV 89.7 fL (80.0-100.0); RBC 2.8 mil/uL (4.20-5.00); RDW 18.1 % (10.5-14.5); WBC 5.1 thou/uL (4.0-11.0)
--- NOTE | 2020-02-08 09:29 | NUR ---
Assess for length of stay. Admit with anemia, diarrhea, uti. Hx dementia, cva, GERD, dysphagia and psych hx. Gastric ulcer identified, possible malignnancy. DNR status. Has been eating 50-90% of meals past 3 days but too drowsy to eat this am from restless evening with medication needed. Has ensure max ordered, but will change to more appropriate glucerna shakes. ST had also assessed on 01/31 and recommend mech altered chopped which no longer on when carb control diet was ordered. Spoke with RN and will add again. Otherwise low nutrition risk with interventions in place.
[2020-02-08] MEDS ORDERED: KLONOPIN0.5 MG PO (11:51)
[2020-02-08] MEDS ORDERED: ROXICODONE5 MG PO (11:51)
[2020-02-08 11:58] VITALS: BP 160/75
--- NOTE | 2020-02-08 12:05 | NUR ---
PT DISCHARGING TODAY BACK TO [facility] FAXED DC ORDERS/SUMMARY TO FACILITY SPOKE WITH ANGEL IN ADM SHE RECEIVED ORDERS. THEY DO NOT TRANSPORTATION I ARRANGED TRANSPORT THROUGH [facility] AT [phone]. NOTIFIED PT'S DTR (CALEB) OF DC AND TIME OF TRANSPORT. UNIT NOTIFIED AND CHART COPY PER US. RN TO CALL REPORT TO [phone].
--- NOTE | 2020-02-08 15:13 | PATH ---
[facility] [address] [place] [address] PATHOLOGY RPT PROCEDURE Name: ABY YIPBA Room #: 446-P ADM IN M.R.#: [id number] Admission: 02/01/20 Date of : 47 Discharge: Report #: [id number] Path Case #: [id number] [facility] Accession Number: [id number] . 01 Material submitted: . stomach - BX OF GASTRIC ULCER . 01 Clinical history: . Anemia; GI bleed . 02 Diagnosis: Gastric biopsy "biopsy of gastric ulcer": - Reactive foveolar hyperplasia suggestive of possible remote ulcer. - No acute ulceration seen. - Mild chronic inflammation seen. - The immunoperoxidase stains for Helicobacter pylori reveal bacteria consistent with Helicobacter pylori. (SHA:pit 02/08/2020) QTP 02/08/2020 1451 Local . 02 Electronically signed: . Zev Anderson MD, Pathologist NPI- [id number] . 01 Gross description: . The specimen is received in formalin, labeled "Gaviota Yip, biopsy of gastric ulcer". Received are two segments of pale barajas soft tissue ranging in size from 0.4 to 0.5 cm in maximum dimensions. The specimen is submitted entirely in cassette A1. (CAA; 02/05/2020) QAC/QAC 02/05/2020 1115 Local . 02 Pathologist provided ICD-10: K29.50 . 02 CPT . 364233, R16979 Specimen Comment: A courtesy copy of this report has been sent to [phone] Specimen Comment: [phone], Specimen Comment: Report sent to ,DR MARQUIS / DR MEYERS Performed at: 01 [place] [id number] [address] [id number] MD Mauro Matthews MD Phone: [phone] Performed at: 02 [facility] [address] [place] [address] PATHOLOGY RPT PROCEDURE Name: GAVIOTA YIP Room #: 446-P ADM IN M.R.#: [id number] Admission: 02/01/20 Date of : 47 Discharge: Report #: [id number] Path Case #: [id number] [address] [place] [id number] MD Shavon Middleton MD Phone: [phone]
--- NOTE | 2020-02-08 18:38 | NUR ---
DC ORDERS RECEIVED. IV REMOVED FROM L FA. W/C NARINDER PICKED UP PT. REPORT CALLED TO [facility] AND SPOKE TO NOHEMI, DAUGHTER CALEB WAS CALLED AND MESSAGE LEFT ON ANSWERING MACHINE.
--- NOTE | 2020-02-10 08:10 | HC ---
[facility] [address] CONSULTATION Name: HAYLEY SANCHEZ Room #: 446-P [facility] IN M.R.#: [id number] Admission: 02/01/20 Attend Phys: Vanesa Antonio MD Discharge: 02/08/20 Date of : 47 Report #: [id number] THIS REPORT FOR: cc: Denny Moreira MD, Dennis R MD McElhinney, Christian C. MD ~ CC: Denny Antonio MD DATE OF SERVICE: 02/01/2020 HISTORY OF PRESENT ILLNESS: The patient is a 74-year-old female who was admitted on 01/29/2020 for agitation, dementia, becoming worse, was on the 5th floor, being followed by Dr. Antonio. She was noted to be anemic on admission with hemoglobin of 9.4, this dropped to 7.9 earlier this morning and repeat is 8.2 without transfusion. The patient has a positive Hemoccult test on 01/31/2020. The patient is a fair historian. She denies any abdominal pain. She does have a history of reflux. She is not sure if she takes antacid therapy. She has been on aspirin as an outpatient. No previous history of GI bleed per the patient. She does report some mild intermittent dysphagia. She denies any obvious bright red blood per rectum or melena. She is not sure when her last colonoscopy was performed, but believes it has been 5-10 years ago. No family history of colon cancer. She states her bowel movements have been fairly normal recently. She was transferred to the regular floor today because of the anemia and Hemoccult positive stool. She currently denies any chest pain or shortness of breath. PAST MEDICAL HISTORY: History of dementia, previous history of CVA, history of MD, coronary artery disease, recent admission to the psychiatric floor for increasing aggressiveness, hypertension, gastroesophageal reflux disease, history of anemia, previous urinary tract infection. REVIEW OF SYSTEMS: As per HPI. MEDICATIONS ON ADMISSION: Originally Tylenol, amiodarone, aspirin 81 mg, Ativan, Symbicort, BuSpar, Coreg, Klonopin, colestipol, Depakote, Colace, Lexapro, iron, Lasix, hydralazine, lactulose, milk of magnesia p.r.n., MiraLax, multivitamin, omeprazole, Zofran p.r.n., hydrocodone p.r.n., trazodone. ALLERGIES: TAPE. SOCIAL HISTORY: History of tobacco use. Alcohol is unknown. FAMILY HISTORY: Negative for colon cancer per the patient. [facility] [address] [place] [address] CONSULTATION Name: HAYLEY SANCHEZ Room #: 446-P [facility] IN M.R.#: [id number] Admission: 02/01/20 Attend Phys: Vanesa Antonio MD Discharge: 02/08/20 Date of : 47 Report #: [id number] PHYSICAL EXAMINATION: VITAL SIGNS: Temperature is 98.1, pulse 59, blood pressure 134/45, respiratory rate is 20, O2 sat is 97% on room air. GENERAL: She is alert. She is in no acute distress. HEENT: Sclerae nonicteric. Oropharynx clear. NECK: Supple, without lymphadenopathy. CARDIOVASCULAR: Regular rate and rhythm. CHEST: Clear to auscultation anteriorly bilaterally. ABDOMEN: Soft. She is nontender, nondistended, normoactive bowel sounds. EXTREMITIES: No cyanosis, clubbing or edema. LABORATORY DATA: Sodium 137, potassium 4.1, chloride 102, bicarbonate 33, BUN 14, creatinine 1.5, glucose 103, AST 14, total bilirubin 0.2, calcium 8.1, alkaline phosphatase 75, ALT is 13, total protein 6.2, albumin 1.9. WBC 5.7, hemoglobin 8.2, MCV 89.5, platelet count is 218. COVID has been ordered, but has not received as of yet. UA, greater than 25 wbc's. ASSESSMENT AND PLAN: Anemia with Hemoccult positive stools. The patient denies any obvious bright red blood per rectum. The patient has been on aspirin may have been on omeprazole on a regular basis before admission as well. She does have a history of reflux. She also has dysphagia at times, I would recommend proceeding with an upper endoscopy next tomorrow, consider colonoscopy, need to get further records, unclear when her last colonoscopy was performed, also unclear how well the patient will tolerate prep at this time, it does appear she has constipation issues and is on MiraLax as well as stool softeners on a regular basis. Continue to monitor hemoglobin closely, which is done. She is on Protonix at this time. She is in agreement with upper endoscopy tomorrow. We will make the patient n.p.o. after midnight and make further recommendations after endoscopy. Thank you for allowing me to participate in her care. <ELECTRONICALLY SIGNED> By: Riley Estevez MD 02/10/20 0810 [id number] Riley Estveez MD /nt
== END 2020-02-08 18:24 | DRG 377 ==
LOC: 4S 11:30
PROVIDERS: Hospitalist; Nurse Practitioner Family; ADMIT Internal Medicine
PROC: 0DB68ZX Excision of Stomach, Via Natural or Artificial Opening Endoscopic, Diagnostic (ICD-10-PCS; 2020-02-04)
PROC: 30233N1 Transfusion of Nonautologous Red Blood Cells into Peripheral Vein, Percutaneous Approach (ICD-10-PCS; principal; 2020-02-06)
DX: K25.4 Chronic or unspecified gastric ulcer with hemorrhage (principal); E43 Unspecified severe protein-calorie malnutrition; N17.9 Acute kidney failure, unspecified; N39.0 Urinary tract infection, site not specified; I50.22 Chronic systolic (congestive) heart failure; I13.0 Hypertensive heart and chronic kidney disease with heart failure and stage 1 through stage 4 chronic kidney disease, or unspecified chronic kidney disease; Z66 Do not resuscitate; D50.0 Iron deficiency anemia secondary to blood loss (chronic); N18.3 Chronic kidney disease, stage 3 (moderate); E86.0 Dehydration; K25.9 Gastric ulcer, unspecified as acute or chronic, without hemorrhage or perforation; K21.9 Gastro-esophageal reflux disease without esophagitis; I25.10 Atherosclerotic heart disease of native coronary artery without angina pectoris; J44.9 Chronic obstructive pulmonary disease, unspecified; I48.0 Paroxysmal atrial fibrillation; G89.4 Chronic pain syndrome; E11.22 Type 2 diabetes mellitus with diabetic chronic kidney disease; F01.50 Vascular dementia, unspecified severity, without behavioral disturbance, psychotic disturbance, mood disturbance, and anxiety; E78.5 Hyperlipidemia, unspecified; F17.210 Nicotine dependence, cigarettes, uncomplicated; R19.7 Diarrhea, unspecified; E87.6 Hypokalemia; E83.39 Other disorders of phosphorus metabolism; G47.00 Insomnia, unspecified; Z86.73 Personal history of transient ischemic attack (TIA), and cerebral infarction without residual deficits; I25.2 Old myocardial infarction; Z87.440 Personal history of urinary (tract) infections; Z79.899 Other long term (current) drug therapy; Z68.22 Body mass index [BMI] 22.0-22.9, adult; Z80.9 Family history of malignant neoplasm, unspecified; Z91.048 Other nonmedicinal substance allergy status; Z79.82 Long term (current) use of aspirin; Z03.818 Encounter for observation for suspected exposure to other biological agents ruled out
CPT/HCPCS: 10102; 70005